=== PATIENT | female | born 1960 | race Caucasian/White ===

== ENCOUNTER 2018-06-18 17:44 | Emergency (ER) | payer OTHER ==
[~2018-06-18] VITALS: Ht 157.5 cm; Wt 49.4 kg
[2018-06-18] MEDS ORDERED: KOMBIGLYZE XR1 EAC1 (18:07)
[2018-06-18] MEDS ORDERED: LISINOPRIL10 MG (18:08)
[2018-06-18] MEDS ORDERED: SIMVASTATIN40 MG (18:08)
[2018-06-18] MEDS ORDERED: GLIPIZIDE ER10 MG (18:08)
[2018-06-18] MEDS ORDERED: NORVASC5 MG (18:08)
== END 2018-06-18 21:59 | disposition home or self-care (01) ==
LOC: ER 17:44
DX: N39.0 Urinary tract infection, site not specified (principal); R10.2 Pelvic and perineal pain; R30.0 Dysuria

== ENCOUNTER 2018-06-25 12:31 | Emergency (ER) | payer OTHER ==
[~2018-06-25] VITALS: Ht 157.5 cm; Wt 49.4 kg
[~2018-06-25 12:31] MED LIST: GLIPIZIDE ER10 MG; KOMBIGLYZE XR1 EAC1; LISINOPRIL10 MG; NORVASC5 MG; SIMVASTATIN40 MG
== END 2018-06-25 17:12 | disposition home or self-care (01) ==
LOC: ER 12:31
DX: B35.3 Tinea pedis (principal)

== ENCOUNTER 2019-10-27 22:51 | Inpatient (IN) | payer OTHER ==
[~2019-10-27] VITALS: Ht 157.5 cm; Wt 52.6 kg
[2019-10-27] MEDS ORDERED: NEURONTIN300 MG (23:24)
[2019-10-27] MEDS ORDERED: JENTADUETO 2.51 EACH (23:24)
== END 2019-11-02 22:49 | DRG 470 ==
LOC: ER 22:51 → SURH 10-28 09:46
PROVIDERS: ADMIT Orthopaedic Surgery; ATTEND Orthopaedic Surgery
PROC: 0SRS01A Replacement of Left Hip Joint, Femoral Surface with Metal Synthetic Substitute, Uncemented, Open Approach (ICD-10-PCS; principal; 2019-10-28)
PROC: 0MB Bursae and Ligaments, Excision (ICD-10-PCS; 2019-10-28)
PROC: 30233N1 Transfusion of Nonautologous Red Blood Cells into Peripheral Vein, Percutaneous Approach (ICD-10-PCS; 2019-11-01)
DX: S72.012A Unspecified intracapsular fracture of left femur, initial encounter for closed fracture (principal); D62 Acute posthemorrhagic anemia; W18.39XA Other fall on same level, initial encounter; M16.12 Unilateral primary osteoarthritis, left hip; M70.62 Trochanteric bursitis, left hip; I10 Essential (primary) hypertension; E11.9 Type 2 diabetes mellitus without complications; Z79.4 Long term (current) use of insulin

== ENCOUNTER → 2020-03-12 | Outpatient (CLI) | payer OTHER ==
[~2020-03-12] MED LIST changes: +JENTADUETO 2.51 EACH; +NEURONTIN300 MG
== END | disposition home or self-care (01) ==
LOC: NUCLEAR 12:00
PROVIDERS: ATTEND Physical Medicine & Rehabilitation
DX: M81.0 Age-related osteoporosis without current pathological fracture (principal); S72.92XA Unspecified fracture of left femur, initial encounter for closed fracture

== ENCOUNTER 2020-03-18 13:23 | Outpatient (CLI) | payer OTHER | END 2020-03-18 13:25 | disposition home or self-care (01) | LOC: RAD 13:23 | PROVIDERS: ATTEND Physical Medicine & Rehabilitation | DX: Z96.642 Presence of left artificial hip joint (principal); Z87.81 Personal history of (healed) traumatic fracture ==